=== PATIENT | female | born 1985 | race Caucasian/White ===

== ENCOUNTER 2025-03-08 18:26 | Emergency (ER) | payer OTHER, SELFPAY ==
[2025-03-08 18:32] VITALS: BP 146/87
--- NOTE | 2025-03-08 19:17 | ED.GENMED ---
History of Present Illness
General
Chief Complaint: Fall
Source: patient
Exam Limitations: none
Time Seen by Provider: 03/08/25 19:04
History of Present Illness
History of Present Illness:
39yo right hand dominant female presenting with her friend for evaluation after a fall. Patient slipped on a wet floor at a pool around 1:30 PM this afternoon. She fell on her left shoulder on the concrete floor. She denies any head strike or
loss of consciousness. Patient is presenting with left-sided shoulder pain and left upper back pain. She is having difficulty moving her shoulder due to her discomfort. She took a rectal Voltaren prior to arrival. No paresthesias.
Phy Exam
General Physical Exam
General Presentation: well appearing and no apparent distress
General Skin: warm and dry
General Habitus: normal
General Mental: alert
ENT Exam
ENT Exam: normocephalic and other (No external signs of head trauma.)
Additional ENT: +Tenderness to L trapezius muscle. No cervical spine tenderness.
Eye Exam
Eye Exam: PERRL
Pulmonary Exam
Pulmonary Exam: lungs clear, no respiratory distress, no rales, no crackles, no rhonchi and no wheezing
Gastrointestinal Exam
Gastrointestinal Exam: non tender, soft and non distended
Neurological Exam
Neurological Exam: alert
[place] Coma Scale
Eye Opening: Spontaneous
Verbal Response: Oriented
Motor Response: Obeys Commands
GCS Total Score: 15
Musculoskeletal Exam
Musculoskeletal Exam: other (L shoulder is normal to inspection without deformity. +Generalized tenderness and decreased ROM. There is also tenderness to the L thoracic region without skin change. 2+ radial pulse.)
Skin Exam
Skin Exam: normal color and warm/dry
Psychiatric Exam
Psychiatric Exam: normal mood/affect
Course
Orders/Labs/Results
Orders:
Orders
03/08/25 19:15
Ice Pack-Treatment DIRECTED
Location: L shoulder
Acetaminophen [Tylenol] 1,000 mg PO NOW STA
Lidocaine [Lidocaine 4% Patch] 1 patch TOPICAL NOW STA
Apply Lidocaine patch(s) to:: L upper back
CR Humerus - Left Min 2 Views* Urgent
Comment:
Reason For Exam: fall, injury
CR Ribs-left 3 Vw W/pa Chest Urgent
Comment:
Reason For Exam: fall, injury
CR Shoulder - Left Min 2 View* Urgent
Comment:
Reason For Exam: fall, injury
03/08/25 19:30
Methocarbamol 750 mg PO NOW STA
03/08/25 20:54
Sling Left-Treatment ONCE
Vital Signs
Initial and Last Documented VS:
Initial Vital Signs
Temp Pulse Resp BP Pulse Ox
98.7 F 82 16 146/87 99
03/08/25 18:32 03/08/25 18:32 03/08/25 18:32 03/08/25 18:32 03/08/25 18:32
Last Documented Vital Signs
Temp Pulse Resp BP Pulse Ox
98.7 F 72 18 138/90 96
03/08/25 18:32 03/08/25 21:08 03/08/25 21:08 03/08/25 21:08 03/08/25 21:08
MDM/Problems Addressed
Differential Diagnosis Includes:
39yoF here after a fall this afternoon onto her L shoulder. C/o L shoulder and upper back pain. No head strike or headache. VSS. No deformity on exam. ROM of L shoulder is decreased. There is also tenderness to L upper back. Differential diagnosis
includes but is not limited to: Soft tissue injury, sprain, fracture
X-rays of left shoulder, humerus, and ribs obtained. No fracture seen per my interpretation. Patient given a sling for comfort. Supportive care discussed and prescription given for Robaxin per patient request. Advised follow-up with orthopedics
with persistent symptoms. She was discharged in stable condition.
*Pulse Oximetry
SaO2: 99
Oxygen Mode of Delivery: Room air
Patient hypoxic: no (99%)
*Critical Care Note
Total Time (30-74mins, 75-104mins- exclusive of procedures): Not Applicable
ED Attending Note
-
Portions of this chart may have been created with voice recognition software.� Occasional wrong word or��sound alike� substitutions may have occurred due to the inherent limitations of voice recognition software.
Discharge Plan
Departure
Patient Disposition: Home (Routine Discharge)
Date of Disposition: 03/08/25
Time of Disposition: 20:54
Patient with high blood pressure during this ER visit?: Yes
Discharge Problem:
Ground-level fall, Injury of left shoulder
Instructions: Shoulder Sprain ED
Prescriptions:
New
methocarbamol 750 mg tablet
750 mg PO Q8H PRN (Reason: muscle spasms) Qty: 20 0RF
Referrals:
Vinnie Jaquez MD [Active, Orthopedics]
Joyce Canchola MD [Family Provider, Family Practice]
Activity Restrictions/Additional Instructions:
Wear sling as needed. Apply ice to affected area. You may continue taking Voltaren. Take Robaxin as needed for muscle spasms.
Please follow-up with orthopedics if your symptoms persist. Return to the ER with any new or worsening symptoms.
Interventions
Interventions:
*Risk Screen - Suicide Last Done: 03/08/25 18:32
*General Assessment Last Done: 03/08/25 18:32
*Neglect/Abuse Screening Last Done: 03/08/25 18:32
*ED- Fall Risk Assessment Last Done: 03/08/25 18:32
*ED COVID-19 Vaccine History Last Done: 03/08/25 18:32
*Nursing Disposition Last Done: 03/08/25 21:10
ED-Musculoskeletal Assessment Last Done: 03/08/25 19:15
ED- Neurological Assessment Last Done: 03/08/25 19:15
ED-Skin Assessment Last Done: 03/08/25 19:15
Discharge Date and Time
Discharge Date/Time: 03/08/25 21:10
Print Language: BULGARIAN
[2025-03-08] MEDS: LIDOCAINE 4% PATCH 1 PATCH TOPICAL (19:25)
[2025-03-08] MEDS: TYLENOL 1000 MG PO (19:25)
[2025-03-08] MEDS: METHOCARBAMOL 750 MG PO (19:49)
[2025-03-08 21:08] VITALS: BP 138/90
== END 2025-03-08 21:10 | disposition home or self-care (01) ==
LOC: EMR 18:26
PROVIDERS: EMERGENCY PHYSICIAN Student in an Organized Health Care Education/Training Program; FAMILY PHYSICIAN Family Medicine
DX: S49.92XA Unspecified injury of left shoulder and upper arm, initial encounter (principal); W01.0XXA Fall on same level from slipping, tripping and stumbling without subsequent striking against object, initial encounter
CPT/HCPCS: 99284; 71101; 73030; 73060